=== PATIENT | male | born 1970 | race Caucasian/White ===

== ENCOUNTER 2017-04-30 15:37 | Emergency (ER) | payer SELFPAY ==
[~2017-04-30] VITALS: Ht 180.3 cm; Wt 81.8 kg
[~2017-04-30 15:37] MED LIST: REQUIP2 MG PO
[2017-04-30 15:44] VITALS: BP 136/70; TEMP 98.7
[2017-04-30] MEDS ORDERED: FLEXERIL 1010 MG/TAB PO (16:44)
[2017-04-30 18:22] VITALS: PULSE 62
== END 2017-04-30 18:22 | disposition home or self-care (01) ==
LOC: COL.ER 15:37
DX: S16.1XXA Strain of muscle, fascia and tendon at neck level, initial encounter (principal); S13.9XXA Sprain of joints and ligaments of unspecified parts of neck, initial encounter; S39.012A Strain of muscle, fascia and tendon of lower back, initial encounter; S33.5XXA Sprain of ligaments of lumbar spine, initial encounter; V43.53XA Car driver injured in collision with pick-up truck in traffic accident, initial encounter; Y92.410 Unspecified street and highway as the place of occurrence of the external cause
CPT/HCPCS: J1885; J3360